=== PATIENT | female | born 1990 | race Caucasian/White ===

== ENCOUNTER 2021-04-02 05:09 | Emergency (ER) | payer OTHER, SELFPAY ==
--- NOTE | ~2021-04-02 | US_ITS ---
EXAMINATION: ULTRASOUND OF THE PELVIS AND TRANSVAGINAL CLINICAL INFORMATION: Vaginal bleeding. HCG quantitative 33 corresponding 3-4 weeks. COMPARISON: None TECHNIQUE: Transabdominal and transvaginal pelvic ultrasound was performed. FINDINGS: The uterus is anteverted measuring 9.3 cm in length, 3.3 cm in AP and 4.7 cm wide. The endometrial stripe is normal measuring 0.5 cm. There is no intrauterine gestational sac, yolk sac or pole seen. The right ovary measures 3.3 x 1.9 x 2.6 cm. There are small anechoic cyst and a corpus luteal cyst measuring 2.1 x 1.7 x 2.1 cm. The left ovary measures 2.8 x 1.7 x 2.2 cm and appears unremarkable. There is trace free fluid adjacent to the left ovary. There is no mass seen within the adnexa. US/US OB pelvic and transvaginal IMPRESSION: No intrauterine seen at this time. Recommend follow-up in 2 weeks or quantitative serial HCG follow-up. Small corpus luteal cyst right ovary. The left ovary is unremarkable.
[2021-04-02 06:10] VITALS: BP 127/76; PULSE 67; RESP 16; TEMP 36.8; O2SAT 99; BMI 36.0
[2021-04-02 07:35] VITALS: BP 99/55; PULSE 50
[2021-04-02 07:35] LABS: MANUAL DIFF FLAG NO
[2021-04-02 07:38] VITALS: BP 117/85; PULSE 58
[2021-04-02 07:40] VITALS: BP 113/75; PULSE 70
[2021-04-02 07:41] LABS: Glucose Urine UA NEG (NEG); Leukocyte Esterase Urine 3+ (NEG); Nitrite Urine POS (NEG); PH 6.5 (5.0-8.0); Specific Gravity - Urine 1.025 (1.005-1.025); Urine Blood 3+ (NEG); Urine Ketones NEG (NEG); Urine Protein 2+ MG/DL (NEG-TRACE)
[2021-04-02 07:43] LABS: Basophils Percent Auto 0.4 % (0-2); Eosinophils Absolute Auto 0.2 X10*3/uL (0.0-0.4); Hematocrit 44.7 % (37-47); Hemoglobin 14.8 g/dl (12.0-16.0); Imm Gran Abs Auto 0.04 X10*3/uL (0.00-0.03); Imm Gran Pct Auto 0.4 % (0.0-0.4); Lymphocytes Absolute Auto 1.7 X10*3/uL (1.2-4.9); Lymphocytes Percent Auto 18.6 % (20-40); Mean Corpuscular HGB Conc 33.1 g/dl (31.0-35.0); Mean Corpuscular Hemoglobin 28.5 pg (27.0-33.0); Mean Platelet Volume 9.8 fL (9.4-12.3); Monocytes Absolute Auto 0.6 X10*3/uL (0.1-1.2); Monocytes Percent Auto 6.9 % (2-11); Neutrophils Absolute Auto 6.6 X10*3/uL (2.0-8.3); Neutrophils Percent Auto 71.7 % (45-73); Platelet Count 303 X10*3/uL (160-400); Red Cell Distribution Width 12.7 % (11.0-16.0); White Blood Count 9.2 X10*3/uL (4.8-10.8)
[2021-04-02 07:45] LABS: Appearance Urine CLOUDY; Color Urine PINK
[2021-04-02] MEDS: 0.9 % Sodium Chloride 1,000 ML 999 ML IV (07:51)
[2021-04-02 07:52] LABS: WBC Urine TNTC /HPF (0-4)
[2021-04-02 07:53] LABS: Bacteria Urine 1+ /LPF; Mucus Urine 3+ /LPF; RBC Urine TNTC /HPF (0); Squamous Epithelial Cell Urine 3+ /LPF
[2021-04-02 08:08] LABS: Anion Gap 11 (12-20); Blood Urea Nitrogen 9 mg/dL (9-16); Calcium 9.8 mg/dL (8.4-10.2); Carbon Dioxide 27 mmol/L (22-29); Chloride 105 mmol/L (96-108); Creatinine Clr Calc Pharmacy 121.1; Estimated Glomerular Filt Rate > 60; Glucose Random 90 mg/dL (60-115); Potassium 4.3 mmol/L (3.3-5.1); Sodium 139 mmol/L (135-145)
[2021-04-02 08:16] LABS: HCG Quantitative 33 mIU/mL
--- NOTE | 2021-04-02 10:49 | ED_ITS ---
HPI - General Chief complaint: Dizziness Stated complaint: , vaginal bleeding Time Seen by Provider: 04/02/21 09:07 Source: patient Mode of arrival: ambulatory Limitations: no limitations History of Present Illness HPI Narrative: 30-year-old female who has had 2 prior pregnancies in the past her 1st pregnancywas a miscarriage where she required a D&C and she has an 8-year-old who is healthy and no complications with that presenting to the ED with complaints of lower suprapubic abdominal pain/cramping since last night with associated vaginal bleeding that was light yesterday although this morning when she arrived here she has some clots in her urine sample although no other clots or tissue passed per patient. She reports that she normally has irregular. Her entire life and that she has not had a menstrual period recently. She is trying to get at this time she removed her Nexplanon approximately 3 months ago. She had a positive home test on 03/13/2020. She has not followed up with OBGYN. She reports associated dizziness and nausea. Denies any headaches, change in vision, neck pain/stiffness, chest pain or shortness of breath, dyspnea on exertion, o rthopnea, palpitations, radiation of the abdominal pain, back pain, abnormal vaginal discharge, thoughts of STDs, dysuria, diarrhea or constipation, black or bloody stools or any weakness or falls or any other symptoms complaints or concerns at this time. MD Complaint: abdominal pain and vaginal bleeding Onset (ago): day(s) (Since last night worse this morning) Pain Consistency: constant Location: pelvis and abdomen (Suprapubic abdomen) Severity: mild Quality: Cramping Relieving factors: none Exacerbating factors: none Associated symptoms: other (Dizziness) Vaginal discharge: none Vaginal bleeding: light and clots (Passed small clots when she arrived here when urinating) Hx Last Menstrual Period: History of irregular periods have not had a menstrual period recently Patient : Yes OB History - Current : no complications OB History - Previous Pregnancies: miscarriage (She had 1 miscarriage that required a D&C) care: none Related Data : 3 Para: 1 Total number of abortions (spontaneous and elective): 0 Previous Rx's Medication Instructions Recorded acetaminophen 500 mg tablet 1,000 mg PO QID PRN #14 tab 04/02/21 (Tylenol Extra Strength) ondansetron HCl 4 mg tablet 4 mg PO Q8H PRN #14 tab 04/02/21 (Zofran) Allergies Allergy/AdvReac Type Severity Reaction Status Date / Time No Known Allergies Allergy Unverified 05/10/20 19:40 [No Known Allergies*] Review of Systems Review of Systems: Constitutional : No Fever, No Chills ENT/Mouth : No sore throat, No Rhinorrhea Eyes: No Eye Pain, No Redness Cardiovascular : No Chest Pain, No SOB Respiratory : No Cough, No Sputum, No Wheezing Gastrointestinal : Positive nausea and abdominal pain, No Vomiting, No Diarrhea Genitourinary : Positiveirregular bleeding, No Dysuria, No Urinary Frequency, No pelvic pain Musculoskeletal : No Myalgias Skin : No rash Neuro : No Weakness, No Headache Psych : No Anxiety/Panic, No Depression Heme/Lymph: No bruising, No Lymphadenopathy Endocrine : No Polyuria, No Polydipsia Yes all other systems are reviewed and are negative [facility] Past Medical History Attestation statement: The following information was validated with the patient. : 3 Para: 1 Total number of abortions (spontaneous and elective): 0 Hx Last Menstrual Period: History of irregular periods have not had a menstrual period recently Social History Social History Advance Directives: No Advance Directives Information Provided: No Patient : Yes Physical Exam Vital Signs: Vital Signs: Last Vital Signs Temp 98.3 F 04/02/21 06:10 Pulse 70 04/02/21 07:40 Resp 16 04/02/21 06:10 BP 113/75 04/02/21 07:40 Pulse Ox 99 04/02/21 06:10 Body Mass Index 36.0 vital signs have been reviewed as normal and appeared to be correct. Blood pressure normal. Heart rate normal. Respiration rate normal. Temperature normal. Oxygen saturation normal. Appearance: Alert. Oriented X3. No acute distress. Head: Normal external exam. Normocephalic. Atraumatic. Eyes: PERRLA. EOMI. Conjunctiva and sclera normal. Eyelids normal. ENT: Pharynx normal. Uvula midline. Moist mucous membranes. Neck: Normal inspection. Neck supple. FROM. No adenopathy. No meningeal signs. CVS: Normal heart rate and rhythm. Heart sound normal. No murmurs noted. Pulses normal throughout. Respiratory: No respiratory distress. Painless inspiration. Breath sounds aaron l. No wheezes/rales/rhonchi noted. Chest nontender. No accessory muscle usage noted or decreased air movement noted. Abdomen: Soft and mild tenderness to palpation at the suprapubic area. Bowel sounds normal in all 4 quadrants. No distention noted. No organomegaly noted. No visible injury noted. : Supervised by JEANNETTE Mcdonald. Normal external appearance of urethra. No lesions/lacerations or discharge or tenderness noted. Speculum exam normal appearance/palpation of vagina normal. No abnormal vaginal discharge noted. Otherwise no vaginal erythema. No foreign bodies noted. No vaginal lace ration/lesions noted. No tissue present in vagina. No vaginal mass noted. No vaginal swelling noted. No vaginal tenderness noted. Normal appearance of cervix. Normal palpation of cervix. Cervical os is closed. Although patient does have brown blood noted on speculum exam although no active bleeding or hemorrhaging noted. No clots or tissue noted. No abnormal cervical discharge noted. No cervical lesion/mass. No Bartholin cyst noted. No cervical motion tenderness noted. Negative chandelier sign. Normal bimanual exam. Uterine size normal. Bladder normal to palpation. Uterine consistency normal. Normal cervical palpation. Uterine mobility normal. Uterine shape normal. Normal adnexa. Normal rectovaginal exam. Back: No CVA tenderness. Full range of motion noted. Skin: Skin warm and dry. Normal skin color. Normal skin turgor. No rashes/lesions/lacerations noted. Extremities: No lower extremity edema. No calf tenderness is noted. Extremities exhibit normal range of motion. Extremities nontender. Neuro: Oriented X 3. No motor deficit. No sensory deficit. Reflexes normal. Course Course Course Narrative: 9:40am - 30-year-old female who is AB1 who had a positive test on March 13 and recently discontinue her Nexplanon control 3 months ago who has always had irregular periods and has not had of recent menstrual period In months presenting to the ED with complaints of suprapubic abdominal cramping with associated vaginal bleeding and dizziness that started since last night worse this morning. Has not followed up with OBGYN yet. Has had a miscarriage in the past which required a D&C. No thoughts of STDs. - on exam patient's suprapubic abdomen is tender to palpation. No other tenderness noted. On vaginal exam patient has scant brown colored blood on speculum exam although no active bleeding or tissues or masses noted. No cervical motion tenderness is noted. No active bleeding or hemorrhaging noted or abnormal discharge noted. Plan: Labs, UA, UHCG, OB US consult with OBGYN then re-evaluate. Reevaluation(s) Reevaluation #1: - labs reviewed and serum quant at 33. Otherwise all other labs are within normal limits. UA with blood and positive nitrate therefore patient has a UTI. Bacteria vaginosis/Trichomonas/yeast/gonorrhea/chlamydia swabs pending at this time. - Ob ultrasound revealed no intrauterine seen at this time they recommend follow-up in 2 weeks or quantitative serial hCG follow-up. She has a small corpus luteum cyst in the right ovary and the left ovary is unremarkable. - therefore consulted with Dr. Augustin the OBGYN and he believes that the patient possibly had a complete /miscarriage and instructed me to have her have a repeat serum quant in 48 hours and he will see her also in 48 hours in his off ice and to give her return precautions. Therefore explained this to the patient she understands agrees with this plan. - blood type therefore no RhoGAM indicated at this time. - will DC home with instructions follow-up with Dr. Augustin in office and repeat serum quant which I placed the order in the computer. Time: 11:28 MDM - OB/Uterine Contractions Medical Records Attestation: I reviewed the patient's medical records. Lab Data Attestation: I reviewed the patient's lab results. Result diagrams: 04/02/21 07:30 04/02/21 07:30 Labs: Lab Results 04/02/21 04/02/21 04/02/21 Range/Units 07:30 07:30 07:30 WBC 9.2 (4.8-10.8) X10*3/uL RBC 5.20 (4.20-5.50) X10*6/uL Hgb 14.8 (12.0-16.0) g/dl Hct 44.7 (37-47) % MCV 86.0 (80-98) fL MCH 28.5 (27.0-33.0) pg MCHC 33.1 (31.0-35.0) g/dl RDW 12.7 (11.0-16.0) % Plt Count 303 (160-400) X10*3/uL MPV 9.8 (9.4-12.3) fL Immature Gran % (Auto) 0.4 (0.0-0.4) % Neut % (Auto) 71.7 (45-73) % Lymph % (Auto) 18.6 L (20-40) % [place] % (Auto) 6.9 (2-11) % Eos % (Auto) 2.0 (0-4) % Baso % (Auto) 0.4 (0-2) % Lymph # (Auto) 1.7 (1.2-4.9) X10*3/uL [place] # (Auto) 0.6 (0.1-1.2) X10*3/uL Eos # (Auto) 0.2 (0.0-0.4) X10*3/uL Baso # (Auto) 0.0 (0.0-0.2) X10*3/uL Abs Immat Gran (auto) 0.04 H (0.00-0.03) X10*3/uL Absolute Neuts (auto) 6.6 (2.0-8.3) X10*3/uL Absolute Nucleated RBC 0.000 (0.0-0.012) X10*3/uL Nucleated RBC % (auto) 0.0 (0.0-0.2) /100WBC Sodium 139 (135-145) mmol/L Potassium 4.3 (3.3-5.1) mmol/L Chloride 105 (96-108) mmol/L Carbon Dioxide 27 (22-29) mmol/L Anion Gap 11 L (12-20) BUN 9 (9-16) mg/dL Creatinine 0.76 (0.5-1.4) mg/dL Estim Creat Clear Calc 121.1 Estimated GFR > 60 Random Glucose 90 (60-115) mg/dL Calcium 9.8 (8.4-10.2) mg/dL Beta HCG, Quant 33 mIU/mL Urine Color Urine Appearance Urine pH (5.0-8.0) Ur Specific [place] (1.005-1.025) Urine Protein (NEG-TRACE) MG/DL Urine Glucose (UA) (NEG) MG/DL Urine Ketones (NEG) MG/DL Urine Blood (NEG) Urine Nitrite (NEG) Ur Leukocyte Esterase (NEG) Urine RBC (0) /HPF Urine WBC (0-4) /HPF Ur Squamous Epith Cells /LPF Urine Bacteria /LPF Urine Mucus /LPF Urine Yeast /HPF Blood Type 04/02/21 04/02/21 Range/Units 07:30 10:53 WBC (4.8-10.8) X10*3/uL RBC (4.20-5.50) X10*6/uL Hgb (12.0-16.0) g/dl Hct (37-47) % MCV (80-98) fL MCH (27.0-33.0) pg MCHC (31.0-35.0) g/dl RDW (11.0-16.0) % Plt Count (160-400) X10*3/uL MPV (9.4-12.3) fL Immature Gran % (Auto) (0.0-0.4) % Neut % (Auto) (45-73) % Lymph % (Auto) (20-40) % [place] % (Auto) (2-11) % Eos % (Auto) (0-4) % Baso % (Auto) (0-2) % Lymph # (Auto) (1.2-4.9) X10*3/uL [place] # (Auto) (0.1-1.2) X10*3/uL Eos # (Auto) (0.0-0.4) X10*3/uL Baso # (Auto) (0.0-0.2) X10*3/uL Abs Immat Gran (auto) (0.00-0.03) X10*3/uL Absolute Neuts (auto) (2.0-8.3) X10*3/uL Absolute Nucleated RBC (0.0-0.012) X10*3/uL Nucleated RBC % (auto) (0.0-0.2) /100WBC Sodium (135-145) mmol/L Potassium (3.3-5.1) mmol/L Chloride (96-108) mmol/L Carbon Dioxide (22-29) mmol/L Anion Gap (12-20) BUN (9-16) mg/dL Creatinine (0.5-1.4) mg/dL Estim Creat Clear Calc Estimated GFR Random Glucose (60-115) mg/dL Calcium (8.4-10.2) mg/dL Beta HCG, Quant mIU/mL Urine Color PINK Urine Appearance CLOUDY Urine pH 6.5 (5.0-8.0) Ur Specific [place] 1.025 (1.005-1.025) Urine Protein 2+ H (NEG-TRACE) MG/DL Urine Glucose (UA) NEG (NEG) MG/DL Urine Ketones NEG (NEG) MG/DL Urine Blood 3+ H (NEG) Urine Nitrite POS H (NEG) Ur Leukocyte Esterase 3+ H (NEG) Urine RBC TNTC H (0) /HPF Urine WBC TNTC H (0-4) /HPF Ur Squamous Epith Cells 3+ /LPF Urine Bacteria 1+ /LPF Urine Mucus 3+ /LPF Urine Yeast 1+ /HPF Blood Type O Positive Imaging Data Ob ultrasound: Attestation: I personally reviewed and interpreted this imaging study as follows: Radiologist's impression: FINDINGS: The uterus is anteverted measuring 9.3 cm in length, 3.3 cm in AP and 4.7 cm wide. The endometrial stripe is normal measuring 0.5 cm. There is no intrauterine gestational sac, yolk sac or pole seen. The right ovary measures 3.3 x 1.9 x 2.6 cm. There are small anechoic cyst and a corpus luteal cyst measuring 2.1 x 1.7 x 2.1 cm. The left ovary measures 2.8 x 1.7 x 2.2 cm and appears unremarkable. There is trace free fluid adjacent to the left ovary. There is no mass seen within the adnexa. US/US OB pelvic and transvaginal IMPRESSION: No intrauterine seen at this time. Recommend follow-up in 2 weeks or quantitative serial HCG follow-up. ? Small corpus luteal cyst right ovary. ? The left ovary is unremarkable. Discharge Plan Discharge Clinical Impression: Positive blood test, , threatened Patient Disposition: Home, Self-Care Instructions: Threatened Miscarriage (ED), (ED) Additional Instructions: You have a blood type of O-positive therefore you do not need RhoGAM at this time. I placed a lab order in the computer and on 04/04/2021 at 08:00 you should go to the outpatient lab and have a repeat serum quantitative to evaluate for your then you need to follow-up with Dr. Augustin the OBGYN. Please return if any new or worsening symptoms. Prescriptions: New ondansetron HCl [Zofran] 4 mg tablet 4 mg PO Q8H PRN (Reason: nausea and vomiting) Qty: 14 RF: 0 acetaminophen [Tylenol Extra Strength] 500 mg tablet 1,000 mg PO QID PRN (Reason: fever or pain) Qty: 14 RF: 0 Referrals: Michael Augustin MD [Physician] - 2 days Stand Alone Forms: Work/School Release Print Language: Pashto
[2021-04-02 12:38] LABS: CT PCR NOT DETECTED (Not Detect.); NG PCR NOT DETECTED (Not Detect.)
[2021-04-03 11:14] LABS: BV Int Neg Control Negative (Negative); BV Int Pos Control Positive (Positive)
== END 2021-04-02 11:41 | disposition home or self-care (01) ==
PROVIDERS: Physician Assistant Medical; Emergency Provider Emergency Medicine Emergency Medical Services
DX: O20.0 Threatened abortion (principal); O34.81 Maternal care for other abnormalities of pelvic organs, first trimester; N83.11 Corpus luteum cyst of right ovary; Z3A.01 Less than 8 weeks gestation of pregnancy
CPT/HCPCS: 36415; 76801; 76817; 80048; 81001; 84702; 85025; 86900; 86901; 87480; 87491; 87510; 87591; 87660; 96360; 99284

== ENCOUNTER 2021-04-04 12:28 | Outpatient (REF) | payer OTHER, SELFPAY ==
[2021-04-04 14:02] LABS: HCG Quantitative 33 mIU/mL
== END 2021-04-04 12:29 | disposition home or self-care (01) ==
LOC: HO.LAB 12:28
PROVIDERS: Visit Provider Advanced Practice Midwife
DX: O20.0 Threatened abortion (principal); O09.299 Supervision of pregnancy with other poor reproductive or obstetric history, unspecified trimester; Z3A.00 Weeks of gestation of pregnancy not specified
CPT/HCPCS: 36415; 84702; 99202

== ENCOUNTER 2021-04-06 09:21 | Outpatient (REF) | payer OTHER, SELFPAY ==
[2021-04-06 10:23] LABS: HCG Quantitative 23 mIU/mL
== END 2021-04-06 09:22 | disposition home or self-care (01) ==
LOC: HO.LAB 09:21
PROVIDERS: Visit Provider Advanced Practice Midwife
DX: O20.0 Threatened abortion (principal)
CPT/HCPCS: 36415; 84702

== ENCOUNTER 2021-04-10 11:30 | Outpatient (REF) | payer OTHER, SELFPAY ==
[2021-04-10 14:19] LABS: HCG Quantitative 17 mIU/mL
== END 2021-04-10 11:31 | disposition home or self-care (01) ==
LOC: HO.LAB 11:30
PROVIDERS: Visit Provider Advanced Practice Midwife
DX: O20.0 Threatened abortion (principal)
CPT/HCPCS: 36415; 84702